=== PATIENT | female | born 1965 | race African-American/Black ===

== ENCOUNTER 2018-09-08 07:51 | Observation (INO) | payer SELFPAY ==
[2018-09-08 08:27] LABS: #Eosinphils 0.1 thou/uL (0.0-0.7); #Lymphocytes 1.2 thou/uL (1.20-3.40); #Monocytes 0.4 thou/uL (0.11-0.59); %Basophils 0.2 % (0.0-1.0); %Eosinophils 0.8 % (0.0-10.0); %Lymphocytes 18.7 % (21.0-51.0); %Monocytes 5.7 % (0.0-10.0); %Neutrophils 74.6 % (42.0-75.0); Hemoglobin 13.1 g/dL (12.0-16.0); Mean Corpuscular HGB CONC 32.7 g/dL (32.0-36.0); Mean Corpuscular Hemoglobin 25.8 pg (27.0-31.0); Mean Corpuscular Volume 79.1 fL (78.0-98.0); Platelet Count 285 thou/uL (130-400); RBC Distribution Width 15.9 % (11.5-14.5); Red Blood Cell (RBC) Count 5.06 mill/uL (4.20-5.40); White Blood Cell (WBC) Count 6.7 thou/uL (4.8-10.8)
[2018-09-08 08:47] LABS: ALT (SGPT) 13 U/L (8-55); AST (SGOT) 13 U/L (5-34); Albumin 4.2 g/dL (3.5-5.0); Alkaline Phosphatase 88 U/L (40-150); Anion Gap 12 mmol/L (10-20); BUN (Urea Nitrogen) 10 mg/dL (7.0-18.7); Bilirubin, Total 0.3 mg/dL (0.2-1.2); Calc. Creatinine Clearance 0 mL/min (70-130); Calcium 9.7 mg/dL (7.8-10.44); Carbon Dioxide 30 mmol/L (22-29); Chloride 99 mmol/L (98-107); Estimated GFR-MDRD 85; Globulin 3.5 g/dL (2.4-3.5); Glucose 128 mg/dL (70-105); Potassium 3.5 mmol/L (3.5-5.1); Protein, Total 7.7 g/dL (6.0-8.3); Sodium 137 mmol/L (136-145)
--- NOTE | 2018-09-08 09:09 | CT ---
CT OF BRAIN PERFORMED WITHOUT CONTRAST ENHANCEMENT: Date: 09/08/18 HISTORY: Syncopal episode. FINDINGS: The ventricular and cisternal system is within normal limits. There are no signs of intracerebral hem orrhage or extra-axial fluid collections. The mastoid air cells and visualized sinuses are clear. IMPRESSION: No acute intracranial abnormalities. POS: [facility]
--- NOTE | 2018-09-08 09:17 | RAD ---
FChest AP view INDICATION: Dizziness and hypertension COMPARISON: July 26, 2016 FINDINGS: The lungs are clear. The heart size is normal. No pleural effusion or pneumothorax is evide nt. No acute osseous abnormality is noted. IMPRESSION: No acute cardiopulmonary abnormality.
[2018-09-08 09:30] LABS: BHCG - Serum Negative (NEGATIVE); Pregs Control Background? CLEAR/WHITE (CLR/WHITE); Pregs Control Bar Appear? YES (CONTROL BAR)
[2018-09-08] MEDS ORDERED: Labetalol HCl 100 MG/20 ML VIAL SLOW IVP SCH (09:30)
[2018-09-08 09:36] LABS: Bilirubin Negative (Negative); Blood, Urine Trace (Negative); Clarity Hazy (Clear); Glucose, Urine (Dipstick) Negative (Negative); Leukocyte Large (Negative); Nitrite Negative (Negative); Protein, Urine (Dipstick) Negative (Neg-Trace); Urobilinogen 0.2 mg/dL (0.2-1.0); pH, Urine 5.5 (5.0-9.0)
[2018-09-08 09:48] LABS: Bacteria/HPF None Seen HPF (None Seen); RBC/HPF 0-3 HPF (0-3); Trichomonas/HPF 1+ HPF (None Seen); WBC/HPF 21-50 HPF (0-3)
[2018-09-08 09:49] LABS: Hyaline Casts/LPF NONE SEEN LPF (0-3 Hyaline)
[2018-09-08] MEDS ORDERED: diphenhydrAMINE 50 MG/ML VIAL ONE (10:22)
[2018-09-08] MEDS ORDERED: Metoclopramide HCl 10 MG/2 ML VIAL ONE (10:22)
[2018-09-08] MEDS ORDERED: Meclizine HCl 25 MG TAB ONE (10:22)
[2018-09-08] MEDS ORDERED: metroNIDAZOLE 250 MG TAB ONE (11:17)
[2018-09-08] MEDS ORDERED: Ondansetron PF 4 MG/2 ML Vial ONE (11:17)
[2018-09-08 11:58] LABS: Troponin I Less than 0.010 ng/mL (< 0.028)
[2018-09-08 12:11] VITALS: BMI 45.7
[2018-09-08] MEDS ORDERED: Sodium Chloride 0.9% 1,000 ML IV SCH (12:15)
[2018-09-08] MEDS ORDERED: Ondansetron PF 4 MG/2 ML Vial IVP PRN (12:15)
[2018-09-08] MEDS ORDERED: Meclizine HCl 25 MG TAB PO PRN (13:32)
[2018-09-08] MEDS ORDERED: hydrALAZINE 20 MG/ML VIAL SLOW IVP PRN (13:35)
--- NOTE | 2018-09-08 14:16 | HP ---
CHIEF COMPLAINT: Dizziness. HISTORY OF PRESENT ILLNESS: This patient is a 52-year-old female, who presented to the emergency department. The patient reports that she had the onset of feeling dizzy last night around 8:00 p.m. She had persistent symptoms throughout the night and decided she needed to come to the emergency department. This morning, the patient noted that her blood pressure had been running high at home. Her blood pressure monitor read about 210/190. She said she had, had some vertigo symptoms that she described as feeling like "everything was spinning" and they did not change if she was still or if she closed her eyes. In the emergency department, she has received some meclizine and Zofran such and she is actually feeling somewhat better, although says it has not completely resolved. She also reports that since she arrived here, she has had a headache that was primarily frontal. She does have a history of some migraines but feels like this is different. The patient reports that she has been out of her blood pressure medicines for the past week. Last night, she was able to find some in some older bottles, but does not believe that they are out of date, she started them. REVIEW OF SYSTEMS: She denies any chest pains, palpitations, or shortness of breath. All other systems were reviewed and all pertinent positives and negatives noted in the history of present illness. PAST MEDICAL HISTORY: Notable for hypertension, bipolar disorder, and anxiety. PAST SURGICAL HISTORY: BTL. FAMILY HISTORY: Mother had diabetes and congestive heart failure, and bipolar disorder. Father had diabetes mellitus. SOCIAL HISTORY: The patient is an occasional social alcohol drinker. She occasionally smokes cigarettes and occasionally smokes marijuana when her anxiety is high. She is . She is full code and her son or daughter would be her surrogate decision maker should that become necessary. ALLERGIES: NONE. CURRENT MEDICATIONS: 1. Amlodipine 10 mg p.o. daily. 2. Lisinopril 40 mg p.o. daily. PHYSICAL EXAMINATION: GENERAL APPEARANCE: Morbidly obese, age-appropriate female, in no distress. She is awake, alert, oriented, pleasant, and cooperative. HEENT: PERRL. No OP lesions. NECK: Supple and symmetric. No lymphadenopathy, JVD, or carotid bruits. HEART: Regular rate and rhythm without murmurs, gallops, or rubs. LUNGS: Clear to auscultation bilaterally with good chest wall expansion and air exchange. ABDOMEN: Soft, nontender, and nondistended. Positive bowel sounds. No masses. No organomegaly. EXTREMITIES: No cyanosis, clubbing, or edema. NEUROLOGIC: She appears to be fully intact with normal cranial nerve function. No focal deficits rather. PSYCH: The patient has normal affect and behavior presently. LABORATORY DATA: White count 6.7, hemoglobin 13.1, and platelets 285. Sodium 137, potassium 3.5, chloride 99, CO2 of 30, BUN 10, creatinine 0.86, glucose 128, AST is 13, and ALT is 13. Troponin less than 0.01 x2. BNP less than 10. negative. Urinalysis shows large leukocyte esterase, 21 to 50 white cells with 1+ Trichomonas. Chest x-ray is clear. Brain CT is normal. EKG shows some inverted T-waves in the lateral leads, which are new from 2017. IMPRESSION AND PLAN: 1. Vertigo. It is unclear if this is related to the patient's high blood pressure. In the emergency department, she received Zofran, Benadryl, Reglan, and meclizine and currently reports that her symptoms are improved, although her blood pressure is improved as well. We will continue to treat with p.r.n. meclizine. 2. Hypertension, possible hypertensive urgency given the headache and the dizziness that has improved. Her blood pressure has come down and does not appear that she received any specific medications in the emergency department for controlling the blood pressure, and it did improve. She will remain on her usual home regimen. We will continue to monitor. 3. Abnormal EKG, unclear significance. It is definitely different than it was in 2017, although she is denying any type of anginal symptoms. We will repeat now that her blood pressure is improved. 4. Trichomonas. The patient had Trichomonas found on her urinalysis. She had 2 g of Flagyl in the emergency department should be adequate treatment. 5. History of bipolar disorder, appears to be stable in her affect. At the moment, she is on no active treatment. Job ID: [id number]
[2018-09-08 15:31] LABS: Troponin I Less than 0.010 ng/mL (< 0.028)
[2018-09-08] MEDS: Acetaminophen 325 MG TAB PO PRN ×2 (15:47→22:08)
[2018-09-08] MEDS ORDERED: diphenhydrAMINE 50 MG/ML VIAL IVP SCH (20:00)
[2018-09-08] MEDS ORDERED: Metoclopramide HCl 10 MG/2 ML VIAL IVP SCH (20:00)
[2018-09-09] MEDS: Acetaminophen 325 MG TAB PO PRN (03:36)
[2018-09-09 03:41] VITALS: TEMP 97.8
[2018-09-09 08:15] VITALS: BP 165/98
[2018-09-09] MEDS ORDERED: Amlodipine 10 MG TAB PO SCH (09:00)
[2018-09-09] MEDS ORDERED: Lisinopril 20 MG TAB PO SCH (09:00)
--- NOTE | 2018-09-09 17:09 | DIS ---
DATE OF ADMISSION: 09/08/2018 DATE OF DISCHARGE: 09/09/2018 ALLERGIES: NO KNOWN DRUG ALLERGIES. CHIEF COMPLAINT: Dizziness, headache, high blood pressure. FINAL DIAGNOSES: 1. Vertigo, now resolved, improved with blood pressure control and meclizine, unclear if episode was related to accelerated hypertension. 2. Accelerated hypertension, resolved. 3. Trichomonas, status post treatment with 2 g Flagyl. 4. Abnormal EKG of unclear significance, showing some lateral ischemic changes when compared to previous EKG, the patient has no anginal symptoms. PROCEDURES PERFORMED: None. LABORATORY RESULTS: White blood cell count 6.7, hemoglobin 13.1, hematocrit 40.0, MCV 79, MCH 25.8, platelet 285. Sodium 137, potassium 3.5, chloride 99, anion gap 12, creatinine 0.86, GFR 85, glucose 128. Liver function tests within normal limits. Troponin was negative x2. BNP was less than 10. Serum test negative. Urinalysis showed 1+ positive for Trichomonas, 21 to 50 white blood cell, 7 to 10 squamous epithelial cells, large amount of leukocyte esterase, and trace amount of blood. IMAGING RESULTS: Brain CT showed no acute intracranial abnormalities. Ventricular and cisternal system is within normal limits. Sinuses were clear. Chest x-ray showed no acute cardiopulmonary abnormality. CONSULTATIONS: None. Vital signs; Blood pressure 145/80, temperature 97.8, and pulse is 75. HOSPITAL COURSE: The patient is a pleasant 52-year-old female , who presented to the hospital with complaints of dizziness and headache. The patient states that she had a feeling the night prior to her admission that the room was spinning. This sensation lasted throughout the night. The following morning, the patient took her blood pressure and got a reading at home of 210/190, and so she presented to the ER for further workup and treatment. In the ER, she received meclizine and Zofran and began to feel much improved. Upon arrival, her blood pressure did trend down on its own. The patient did have a headache as well on presentation, but this has also resolved. The patient stated that she has been out of her blood pressure medications for the past week, and only recently restarted them. As outlined above, her brain CT was negative as well as her chest x-ray. Other lab is largely unremarkable aside for urinalysis positive for Trichomonas, which was treated with 2 g of IV Flagyl in the ER. She was admitted for overnight observation. This morning, upon my interview, all of her presenting symptoms have resolved. She reports no further dizziness/vertigo. She has no nausea. She has no headache, chest pain, or shortness of breath. She has ambulated the halls without issue. She has been placed back on her blood pressure medications. She is tolerating them well and has had good response and blood pressure control. PHYSICAL EXAMINATION: GENERAL: The patient is an obese female, in no acute distress, sitting up in bed, resting comfortably. HEENT: Head is atraumatic and normocephalic. Mucous membranes are moist. NECK: Supple. No lymphadenopathy. No carotid bruits. Trachea is midline. RESPIRATORY: Regular respiratory rate and pattern. Clear to auscultation bilaterally. No rhonchi, wheezes, or crackles. CV: S1 and S2. Regular rate and rhythm. No appreciable murmurs, rubs, or gallops. GI: Soft, nontender. Normal bowel sounds. Obese. PERIPHERAL VASCULAR: No lower extremity pitting edema. Palpable pulses bilaterally. MUSCULOSKELETAL: No joint effusions or swelling. NEUROLOGIC: Awake and alert, oriented x3. Cranial nerves 2 through 12 intact. The patient is nonfocal. SKIN: Warm and dry. No rashes or skin discoloration. CONDITION AT DISCHARGE: Stable. DISCHARGE MEDICATIONS: She will continue her home medications of amlodipine 10 mg daily along with lisinopril 40 mg daily. I have also written a prescription for meclizine 25 mg p.o. q.8 hours p.r.n. vertigo. DISCHARGE DISPOSITION: Home. PLAN: I have counseled the patient extensively on the importance of a low- sodium diet as it relates to high blood pressure control. She will continue her blood pressure medicines as prescribed. I have also discussed with her aggressive risk factor modifications, including initiating diet and exercise program. Regarding her abnormal EKG, this is of unclear significance at this time. I have explained the findings and the fact that this could indicate some ischemia or coronary artery disease. The plan will be for followup at [facility] with referral for outpatient cardiovascular workup if deemed necessary. At this time, the patient is completely asymptomatic and has no anginal symptoms at this time. Care discussed with Dr. Morgan, who agrees with the above. Job ID: [id number] [facility]
== END 2018-09-09 11:45 | disposition home or self-care (01) ==
LOC: ERS 07:51 → 2SW 10:14
PROVIDERS: ADMIT Internal Medicine; ATTEND Internal Medicine
DX: R42 Dizziness and giddiness (principal); I10 Essential (primary) hypertension; F31.9 Bipolar disorder, unspecified; F41.9 Anxiety disorder, unspecified; F17.210 Nicotine dependence, cigarettes, uncomplicated; A59.9 Trichomoniasis, unspecified; E66.01 Morbid (severe) obesity due to excess calories; Z68.42 Body mass index [BMI] 45.0-49.9, adult; Z79.899 Other long term (current) drug therapy
CPT/HCPCS: 36415; 70450; 71045; 80053; 81003; 81015; 83880; 84484; 84703; 85025; 87077; 87086; 93005; 93010; 96361; 96374; 96375; 96376; G0378; J1200; J2405; J2765